=== PATIENT | male | born 1965 | race Caucasian/White ===

== ENCOUNTER 2020-04-22 11:49 | Emergency (ER) | payer BC, OTHER ==
[~2020-04-22] VITALS: Ht 170.2 cm; Wt 74.8 kg
[2020-04-22 11:57] VITALS: BP 134/89
[2020-04-22] MEDS ORDERED: ACYC400T PO (12:08)
[2020-04-22] MEDS ORDERED: PRD20T PO (12:08)
[2020-04-22] MEDS ORDERED: AMOX-358 PO (12:08)
--- NOTE | 2020-04-22 12:09 | ED EENT ---
History of Present Illness General Chief Complaint: Oral/Throat Problems Stated Complaint: DENTAL PAIN/SORES Source: patient Exam Limitations: no limitations History of Present Illness Date Seen by Provider: Apr 22, 2020 Time Seen by Provider: 12:04 Initial Comments To ER with sores on his lips tongue and cheeks. These have been present for about a week. Has also had purulent and bloody nasal secretions for about the same period of time. Timing/Duration: last week Severity: moderate Location: nose, mouth Associated Symptoms: denies symptoms Allergies and Home Medications Allergies Coded Allergies: No Known Drug Allergies (Unverified , 04/22/20) Patient Home Medication List Home Medication List Reviewed: Yes Review of Systems Review of Systems Constitutional: see HPI Eyes: No Symptoms Reported Ears: No Symptoms Reported Nose: see HPI, clots, congestion, epistaxis, bloody discharge, purulent discharge Mouth: see HPI, pain Throat: no symptoms reported Respiratory: no symptoms reported Cardiovascular: no symptoms reported Musculoskeletal: no symptoms reported Skin: no symptoms reported Neurological: No Symptoms Reported Hematologic/Lymphatic: No Symptoms Reported Immunological/Allergic: no symptoms reported Past Bdymzhs-Zdlpax-Vofgyp Hx Patient Social History Alcohol Use: Denies Use Recreational Drug Use: No Smoking Status: Former Smoker Recent Foreign Travel: No Contact w/Someone Who Travel: No Recent Hopitalizations: No Immunizations Up To Date Tetanus Booster (TDap): Unknown Seasonal Allergies Seasonal Allergies: No Past Medical History Surgeries: Yes (dental) Respiratory: No Cardiac: No Neurological: No Genitourinary: No Gastrointestinal: No Musculoskeletal: No Endocrine: No HEENT: No Cancer: No Psychosocial: No Blood Disorders: No Physical Exam Height, Weight, BMI Height: '" Weight: lbs. oz. kg; BMI Method: General Appearance: WD/WN, no apparent distress Eyes: bilateral eye normal inspection, bilateral eye PERRL, bilateral eye EOMI Ears: bilateral ear auricle normal, bilateral ear canal normal, bilateral ear TM normal Nose: other (He does have some shallow ulcerative erosions to the left side of the tongue, the buccal surface of the cheeks, the lip on the bottom.) Mouth/Throat: No tongue swollen; other Neck: non-tender, full range of motion Gastrointestinal: non tender, soft Neurologic/Psychiatric: alert, normal mood/affect, oriented x 3 Skin: normal color, warm/dry Progress/Results/Core Measures Results/Orders My Orders Orders - RADHA MICHELE APRN Lidocaine 2% Viscous 15 Ml (Xylocaine Vi (04/22/20 12:15) Acyclovir Capsule/Tablet (Zovirax Caps (04/22/20 12:15) Prednisone Tablet (Deltasone Tablet) (04/22/20 12:15) Amoxicillin/Clavulanate Tablet (Augmenti (04/22/20 12:15) Departure Impression Primary Impression: Sinusitis Additional Impression: Herpetic gingivostomatitis Disposition: HOME, SELF-CARE Condition: Stable Departure-Patient Inst. Decision time for Depature: 12:07 Referrals: NO,LOCAL PHYSICIAN (PCP/Family) Primary Care Physician Patient Instructions: Mouth Sores, Sinusitis, Adult ED Add. Discharge Instructions: Dip a Q-tip in the lidocaine and swab on the mouth as needed for comfort and certainly before eating. Take the antibiotics and steroids with food as they can upset your stomach. Return to ER for any concerns or worsening. Follow-up with your doctor this week. All discharge instructions reviewed with patient and/or family. Voiced understanding. Scripts Acyclovir (Acyclovir) 400 Mg Tablet 400 MG PO 5XD, #35 TAB Prov: RADHA MICHELE APRN 04/22/20 Amoxicillin/Potassium Clav (Augmentin 875-125 Tablet) 1 Each Tablet 1 EACH PO BID, #14 TAB 0 Refills Prov: RADHA MICHELE APRN 04/22/20 Prednisone (Prednisone) 20 Mg Tab 40 MG PO DAILY, #6 TAB 0 Refills Prov: RADHA MICHELE APRN 04/22/20 RADHA MICHELE APRN Apr 22, 2020 12:09
[2020-04-22] MEDS ORDERED: predniSONE 20 MG TAB PO ONE (12:15)
[2020-04-22] MEDS ORDERED: ACYCLOVIR 400 MG TABLET (ZOVIRAX) PO SCH (12:15)
[2020-04-22] MEDS ORDERED: LIDOCAINE 2% VISCOUS 15 ML UDC PO ONE (12:15)
[2020-04-22] MEDS ORDERED: AUGMENTIN 875 MG TAB (AMOXICILLIN/CLAVULANATE) PO SCH (12:15)
== END 2020-04-22 12:21 | disposition home or self-care (01) ==
LOC: ER 11:54
DX: J32.9 Chronic sinusitis, unspecified (principal); B00.2 Herpesviral gingivostomatitis and pharyngotonsillitis; Z87.891 Personal history of nicotine dependence
CPT/HCPCS: 99283

== ENCOUNTER → 2020-05-01 | Outpatient (CLI) | payer BC ==
[~2020-05-01] MED LIST: ACYC400T PO; AMOX-358 PO; PRD20T PO
== END ==
LOC: LAB 15:51
PROVIDERS: ATTEND Family Medicine
DX: K12.0 Recurrent oral aphthae (principal); J32.8 Other chronic sinusitis
CPT/HCPCS: 36415; 82784; 86038; 86060; 86141; 86695; 86696; 86703

== ENCOUNTER → 2020-05-07 | Outpatient (CLI) | payer BC ==
--- NOTE | 2020-05-07 13:17 | Diagnostic Imaging Report ---
PROCEDURE: CT sinuses without contrast TECHNIQUE: Multiple contiguous axial images were obtained through the sinuses without the use of intravenous contrast. Coronal and sagittal reformations were then performed. Auto Exposure Controls were utilized during the CT exam to meet ALARA standards for radiation dose reduction. INDICATION: Chronic sinusitis. COMPARISON: There are no prior studies available for comparison. FINDINGS: There is mild mucosal thickening of the ethmoid and maxillary sinuses. There is also narrowing of the ostiomeatal complex on the right due to mucosal thickening. The ostiomeatal complex on the left is patent. The sphenoid sinus is generally clear. The frontal sinuses are aplastic. The nasal septum is deviated to the right. The bone windows show no evidence for a fracture or for a destructive lesion. The intracranial contents, where visualized, show no sign of an acute abnormality. There are vague areas of diminished density in the right frontal lobe. I suspect that these are related to encephalomalacia from prior infarct. IMPRESSION: 1. There is mild bilateral ethmoid and maxillary sinusitis. There is also narrowing of the ostiomeatal complex on the right due to mucosal thickening. 2. The sinuses are otherwise generally clear. 3. There is no acute bony abnormality identified. 4. The areas of diminished density in the right frontal lobe are most likely due to encephalomalacia from prior infarcts. If previous exams are available, they would be helpful for comparison. If there are no prior exams and further imaging is desired, then MRI would be recommended. Dictated by: Dictated on workstation # [id number]
== END ==
LOC: RAD 12:40
PROVIDERS: ATTEND Family Medicine
DX: J32.8 Other chronic sinusitis (principal)
CPT/HCPCS: 70486

== ENCOUNTER → 2020-06-26 | Outpatient (CLI) | payer BC ==
[2020-06-26 09:06] LABS: HEMOGLOBIN 15.8 g/dL (13.3-17.7); MEAN PLATELET VOLUME 9.5 fL (9.0-12.2); WHITE BLOOD COUNT 8.5 10^3/uL (4.3-11.0)
[2020-06-26 09:19] LABS: PROTHROMBIN TIME PATIENT 13.3 SEC (12.2-14.7)
== END ==
LOC: LAB 08:57
PROVIDERS: ATTEND Otolaryngology Otolaryngology/Facial Plastic Surgery
DX: R04.0 Epistaxis (principal)
CPT/HCPCS: 36415; 85027; 85610; 85730

== ENCOUNTER → 2020-07-05 | Outpatient (CLI) | payer BC | LOC: LAB 15:04 | PROVIDERS: ATTEND Otolaryngology Otolaryngology/Facial Plastic Surgery | DX: Z01.89 Encounter for other specified special examinations (principal) | CPT/HCPCS: 36415; 85652; 86021; 86235; 86431 ==

== ENCOUNTER → 2020-07-23 | Outpatient (CLI) | payer BC ==
--- NOTE | 2020-07-23 09:26 | Diagnostic Imaging Report ---
PROCEDURE: MR imaging of the brain without contrast. TECHNIQUE: Multiplanar, multisequence MR imaging of the brain was performed without contrast. INDICATION: Right frontal lobe encephalomalacia is partially visualized on previous CT sinuses. There are no foci of abnormal diffusion restriction. No findings of an acute or subacute ischemic infarct found. Some focal encephalomalacia and gliosis in the right frontal lobe consistent with an old ischemic insult. No focal or generalized cerebral edema. No evidence for elevated intracerebral pressures. There is no hemorrhage nor acute extra-axial fluid collection. The midline structures nondisplaced. The ventricular system nondilated and nondisplaced. The basilar cisterns are patent. The brainstem and posterior fossa unremarkable. No cerebellopontine angle mass or mass effect is found. Some likely chronic old ischemic changes in the high posterior right parietal lobe. There is some mild gliosis and encephalomalacia. Orbits and paranasal sinuses nonacute. 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 No findings of recent infarct nor hemorrhage, edema or mass effect. No acute appearing abnormality. Dictated by: Dictated on workstation # [id number]
== END ==
LOC: RAD 08:00
PROVIDERS: ATTEND Family Medicine
DX: G93.89 Other specified disorders of brain (principal)
CPT/HCPCS: 70551

== ENCOUNTER → 2020-08-13 | Outpatient (CLI) | payer BC ==
--- NOTE | 2020-08-13 13:46 | Diagnostic Imaging Report ---
PROCEDURE: US carotid duplex, bilateral. TECHNIQUE: Multiple real-time grayscale images were obtained over the carotid arteries in various projections, bilaterally. Additional spectral analysis and color Doppler duplex images were also obtained. INDICATION: History of right hemispheric stroke. TECHNIQUE: Multiple real-time grayscale images were obtained over the carotid arteries in various projections bilaterally. Additional spectral analysis and color Doppler and Duplex images were also obtained. FINDINGS: Right carotid circulation: There is mild plaque formation in the right carotid bifurcation. There is no significant stenoses of the right internal carotid artery. Left carotid circulation: There is mild plaque formation in the left carotid bifurcation. There is no significant stenoses of the left internal carotid artery. Flow in the bilateral vertebral arteries is antegrade. Bilateral external carotid arteries patent. DOPPLER (peak systolic velocity M/S Right Left CCA .90 .98 ICA Proximal .75 .67 ICA Mid .77 .75 ICA Distal .72 .78 RATIO .87 .80 ECA 1.3 1.3 VERT .69 .46 IMPRESSION: 1. No significant stenosis of the internal carotid arteries. Parameters based on the consensus panel Vásquez-Scale and Doppler ultrasound criteria published February 2003, Radiology, Volume 229. Dictated by: Dictated on workstation # [id number]
== END ==
LOC: CARD 09:43
PROVIDERS: ATTEND Family Medicine
DX: I63.9 Cerebral infarction, unspecified (principal)
CPT/HCPCS: 93306; 93880

== ENCOUNTER 2020-09-22 08:52 | Emergency (ER) | payer BC ==
[~2020-09-22] VITALS: Ht 175 cm; Wt 79.0 kg
[~2020-09-22 08:52] MED LIST changes: -ACYC400T PO; +ACYC400T21 PO
[2020-09-22 08:55] VITALS: BP 129/92
[2020-09-22] MEDS ORDERED: LIDOCAINE 2% VISCOUS 15 ML UDC ONE (09:10)
[2020-09-22] MEDS ORDERED: SUCRALFATE 1 GM (CARAFATE) TAB ONE (09:10)
[2020-09-22] MEDS ORDERED: SUCRALFATE 1 GM (CARAFATE) TAB PO ONE (09:15)
[2020-09-22] MEDS ORDERED: ANTACID SUSP 30 ML UDC (MYLANTA) PO ONE (09:15)
[2020-09-22] MEDS ORDERED: LIDOCAINE 2% VISCOUS 15 ML UDC PO ONE (09:15)
--- NOTE | 2020-09-22 09:19 | ED EENT ---
History of Present Illness General Chief Complaint: Oral/Throat Problems Stated Complaint: MOUTH SORES/SORE THROAT Nursing Triage Note: PT CO OF SORES IN MOUTH, WORSENING. PT MOUTH FULL OF ULCERS, UNABLE TO EAT OR DRINK. HAD GOTTEN BETTER BUT NOW WORSE. PT HAS BEEN SEEING DR WHITE FOR ULCERS Source: patient Exam Limitations: no limitations History of Present Illness Date Seen by Provider: September 22, 2020 Time Seen by Provider: 09:00 Initial Comments Patient is a 55-year-old male who presents to the emergency department today with a chief complaint of multiple shallow ulcers in his mouth worsening over the course of the last couple of days as well as a sore throat since yesterday. Patient states that he has had recurrent ulcers in his mouth since November or December of last year after what he believes was a snake bite to his left calf. Patient did not see a snake bite him it could have been a spider but he did see 2 fang [place] in the posterior aspect of his left calf the day after the injury. Patient has been followed by Dr. Centeno and has had significant amounts of testing done to try and sort out the etiology of his multiple symptoms. Patien states that he was concerned today that he might have strep throat as his throat hurts so bad he is been unable to sleep. Secondary to the ulcers the patient is also been unable to eat or drink. He did use a little bit of Magic mouthwash but it did not help. Patient is on daily acyclovir once a day. No recent fevers, chills, cough or congestion. No nausea vomiting diarrhea or genitourinary complaints. All other review of systems reviewed and negative except as stated above. Timing/Duration: abrupt Severity: severe Location: mouth, throat Associated Symptoms: denies symptoms, sore throat Allergies and Home Medications Allergies Coded Allergies: No Known Drug Allergies (Unverified , 04/22/20) Home Medications Acyclovir 400 Mg Tablet, 400 MG PO 5XD Prescribed by: RADHA MICHELE on 04/22/20 120 Amoxicillin/Potassium Clav 1 Each Tablet, 1 EACH PO BID Prescribed by: RADHA MICHELE on 04/22/20 120 Prednisone 20 Mg Tab, 40 MG PO DAILY Prescribed by: RADHA MICHELE on 04/22/20 120 Patient Home Medication List Home Medication List Reviewed: Yes Review of Systems Review of Systems Constitutional: see HPI Eyes: No Symptoms Reported Ears: No Symptoms Reported Nose: congestion Mouth: other (Multiple shallow ulcers) Throat: pain Respiratory: no symptoms reported Cardiovascular: no symptoms reported Gastrointestinal: no symptoms reported Musculoskeletal: no symptoms reported Skin: other (Change in texture" skin thinness") All Other Systems Reviewed Negative Unless Noted: Yes Past Jdcekqh-Iujuck-Dglrvv Hx Patient Social History Alcohol Use: Denies Use Smoking Status: Never a Smoker Recent Infectious Disease Expo: No Recent Hopitalizations: No Immunizations Up To Date Tetanus Booster (TDap): Unknown Seasonal Allergies Seasonal Allergies: No Past Medical History Surgeries: Yes (dental) Respiratory: No Cardiac: No Neurological: No Genitourinary: No Gastrointestinal: No Musculoskeletal: No Endocrine: No HEENT: No Cancer: No Psychosocial: No Blood Disorders: No Physical Exam Vital Signs Vital Signs - First Documented 09/22/20 08:55 Pulse 67 Resp 20 B/P (MAP) 129/92 (104) Pulse Ox 97 Height, Weight, BMI Height: '" Weight: lbs. oz. kg; 25.00 BMI Method: General Appearance: WD/WN, no apparent distress Eyes: bilateral eye normal inspection, bilateral eye PERRL, bilateral eye EOMI Nose: normal inspection Mouth/Throat: other (Pharyngeal erythema, posterior, right greater than left. Small shallow ulcer noted to the right of center at the tip of the tongue also multiple shallow ulcers noted to the inner aspect of the bottom lip on the right) Neck: non-tender, full range of motion, supple, normal inspection Cardiovascular: regular rate, rhythm Respiratory: lungs clear, normal breath sounds, no respiratory distress, no accessory muscle use Neurologic/Psychiatric: alert, normal mood/affect, oriented x 3 Skin: normal color, warm/dry Progress/Results/Core Measures Results/Orders Lab Results Laboratory Tests Test 09/22/20 09:15 Range/Units Group A Streptococcus Screen NEGATIVE NEGATIVE My Orders Orders - MINERVA MANCINI MD Rapid Strep A Screen (09/22/20 09:13) Antacid Suspension (Mylanta Suspension (09/22/20 09:15) Lidocaine 2% Viscous 15 Ml (Xylocaine Vi (09/22/20 09:15) Sucralfate Tablet (Carafate Tablet) (09/22/20 09:15) Lidocaine 2% Viscous 15 Ml (Xylocaine Vi (09/22/20 09:10) Sucralfate Tablet (Carafate Tablet) (09/22/20 09:10) Medications Given in ED Current Medications Medications Dose Ordered Sig/Shelbie Route Start Time Stop Time Status Last Admin Dose Admin Al Hydrox/Mg Hydrox/Simethicone 30 ml ONCE ONCE PO 09/22/20 09:15 09/22/20 09:16 DC 09/22/20 09:21 30 ML Lidocaine HCl 5 ml ONCE ONCE PO 09/22/20 09:15 09/22/20 09:16 DC 09/22/20 09:21 5 ML Sucralfate 1 gm ONCE ONCE PO 09/22/20 09:15 09/22/20 09:16 DC 09/22/20 09:20 1 GM Vital Signs/I&O 09/22/20 08:55 Pulse 67 Resp 20 B/P (MAP) 129/92 (104) Pulse Ox 97 Blood Pressure Mean: 104 Progress Progress Note : Time: 09:41 Progress Note Patient's rapid strep screen is negative. He obtained minimal relief with the GI cocktail that we administered. The patient is quite frustrated with lack of pain control. I offered a small dose of hydrocodone. At first the patient declined but then decided that he would take it. I recommended that he take tugk-arx-hsnckum ibuprofen 3 to 4 tablets with food 3 times daily. I have recommended that he follow-up closely with Dr. Centeno and with Dr. White. The patient verbalizes understanding. At this point he has no clinical or objective findings to warrant further studies from the emergency department. The patient has had extensive studies done through his primary care physician. They are still investigating the cost of his ulcers. All questions are sought and answered. Patient is stable for discharge. Departure Impression Primary Impression: Stomatitis Additional Impression: Sore throat Disposition: 01 HOME, SELF-CARE Condition: Stable Departure-Patient Inst. Decision time for Depature: 09:42 Referrals: PRIETO CENTENO DO (PCP/Family) Primary Care Physician Patient Instructions: Mouth Sores (DC), Viral Pharyngitis Add. Discharge Instructions: Please call and follow-up with Dr. Centeno first thing on Thursday. Use the Magic mouthwash/cocktail every 3-4 hours to help alleviate your pain. Take [id number]-ncpitrc ibuprofen, 3 to 4 tablets every 8 hours with food as needed for pain. I have given you a prescription for hydrocodone, you can take 1 of these every 4-6 hours also as needed for pain. Return to the emergency room for any worsening symptoms especially associated with fever, shortness of breath or other emergent concerns. Scripts Hydrocodone/Acetaminophen (Hydrocodone-Acetamin 5-325 mg) 1 Each Tablet 1 TAB PO Q4H PRN for PAIN-MODERATE (5-7), #12 TAB Prov: MINERVA MANCINI MD 09/22/20 MINERVA MANCINI MD September 22, 2020 09:18
[2020-09-22] MEDS ORDERED: ACHD5005 PO (09:43)
== END 2020-09-22 09:51 | disposition home or self-care (01) ==
LOC: EDUNIT# 08:52 → ER 08:53
DX: K12.1 Other forms of stomatitis (principal); J02.9 Acute pharyngitis, unspecified
CPT/HCPCS: 87430; 99284

== ENCOUNTER → 2020-09-25 | Outpatient (CLI) | payer BC ==
[~2020-09-25] MED LIST changes: +ACHD5005 PO
--- NOTE | 2020-09-25 14:55 | Diagnostic Imaging Report ---
INDICATION: Right knee pain. COMPARISON: None available. TECHNIQUE: Three radiographs of the right knee dated 09/25/2020. FINDINGS: No acute fracture or dislocation. No destructive osseous process. Mild medial and lateral joint space narrowing. Tiny superior patellar enthesophytes. No significant joint effusion. No suspicious radiopaque foreign body. IMPRESSION: No acute osseous abnormality with low-grade degenerative changes for age. Dictated by: Dictated on workstation # [id number]
== END ==
LOC: RAD 11:05
PROVIDERS: ATTEND Family Medicine
DX: M17.11 Unilateral primary osteoarthritis, right knee (principal)
CPT/HCPCS: 73562

== ENCOUNTER 2021-02-26 12:49 | Emergency (ER) | payer BC ==
[~2021-02-26] VITALS: Ht 167 cm; Wt 77.0 kg
--- OUTSIDE RECORDS SUMMARY | 2021-02-26 12:56 | XMS REPORT | CCD ---
Author Author Saroj Centeno D.O. Organization [facility] Address [address] [place] [address] Phone Care Team Providers Care Developer Prover Upholstering Name Role Phone PP Unavailable CCM Unavailable Summary Purpose Interface Exchange Insurance Providers Payer name Policy type / Coverage type Covered libertarian ID Effective Begin Date Effective End Date Blue Cross Blue Shield Blue Cross/Blue Shield [id number] Unknown Family History Family History data not found Social History Social History Element Codes Description Effective Dates Marital status Unknown 05/01/2020 Employment Unknown Currently employed [employer] 05/01/[address]: 043429259 Has never smoked or chewed tobacco 05/01/[address]: 308988 Currently drinks alcohol 05/01 Has the patient ever used illegal drugs? Unknown In the past only 05/01/2020 Allergies, Adverse Reactions, Alerts Substance Reaction Codes Entered Date Inactivated Date Status * NO KNOWN DRUG ALLERGIES Unknown 05/01/2020 No Inactiv e Date Active Shellfish reaction Unknown 05/01/2020 No Inactive Date Active * NO KNOWN ENVIRONMENTAL ALLERGIES Unknown 05/01/2020 N o Inactive Date Active Problems Condition Codes Effective Dates Condition Status Oral pain ICD-10: K13.79 ICD-9: 528.9 05/01/2020 Active Skin sore ICD-10: L98.9 ICD-9: 709.9 05/01/2020 Active Acute pain of right knee ICD-10: M25.561 ICD-9: 719.46 09/25/2020 Active Sore throat ICD-10: J02.9 ICD-9: 462 09/25/2020 Active Chronic recurrent sinusitis ICD-10: J32.9 ICD-9: 473.9 05/01/2020 Active Foot callus ICD-10: L84 ICD-9: 700 07/16/2020 Active Recurrent aphthous ulcer ICD-10: K12.0 ICD-9: 528.2 05/01/2020 Active Right frontal lobe lesion ICD-10: G93.9 ICD-9: 348.89 05/21/2020 Active Immunosuppressed status ICD-10: D84.9 ICD-9: 279.9 05/01/2020 Active Neuropathy ICD-10: G62.9 ICD-9: 355.9 05/01/2020 Active Medications Medication Codes Instructions Start Date Stop Date Status Fill Instructions acyclovir 800 mg tablet RxNorm: 026554 1 Tablet(s) Oral QD 02/13/2004/12/2021 Active [AttnRPh: Saving apply/adjud icate RxGRP:SG20 RxBIN:[id number] RxPCN: ID#:[id number]] acyclovir 200 mg capsule RxNorm: 933555 1 Capsule(s) Oral two t imes a day 02/12/2021 No Stop Date Active prednisone 20 mg tablet RxNorm: 273037 Take 2 Tablet(s) Oral QD 02/16/2021 Active acyclovir 800 mg tablet RxNorm: 632723 1 Tablet(s) Oral QD 09/26/19 21 11/23/2020 Inactive [AttnRPh: Saving apply/adjud icate RxGRP:SG20 RxBIN:[id number] RxPCN: ID#:[id number]] aspirin 81 mg tablet,delayed release RxNorm: 670725 1 Tablet(s) Oral QD 07/31/2020 02/11/2021 Inactive Valtrex 1 gram tablet RxNorm: 775040 1 Tablet(s) Oral QD replac es acyclovir 07/16/2020 09/14/2020 Inactive acyclovir 800 mg tablet RxNorm: 081970 1 Tablet(s) Oral QD 05/21/1907/15/2020 Inactive [AttnRPh: Saving apply/adjud icate RxGRP:SG20 RxBIN:[id number] RxPCN: ID#:[id number]] Augmentin 875 mg-125 mg tablet RxNorm: 382046 1 Tablet(s) Oral two times a day 05/04/2020 05/18/2020 Inactive Valtrex 1 gram tablet RxNorm: 908701 1 Tablet(s) Oral three jade es a day 05/04/2020 05/18/2020 Inactive Augmentin 875 mg-125 mg tablet RxNorm: 017862 1 Tablet(s) Oral two times a day 05/03/2020 05/03/2020 Inactive Valtrex 1 gram tablet RxNorm: 220521 1 Tablet(s) Oral three jade es a day 05/03/2020 05/03/2020 Inactive ibuprofen 200 mg tablet RxNorm: 097322 as needed 05/01/2020 No Stop Da te Active Medication Administered No Medication Administered data Immunizations No Immunization data Results No Results data Procedures Procedure Codes Date VIRUS INOCULATION TISSUE CPT-4: 35491 02/12/2021 Vital Signs Date Vital 02/12/2021 Blood Pressure 1: 133/78 Code: 8480-6 Heart Rate 1: 91 bpm Respiratory Rate: 16 bpm SpO2: 98% Temperature: 36.5 (C) / 97.7 (F) 09/25/2020 Blood Pressure 1: 134/76 Code: 8480-6 Heart Rate 1: 73 bpm Respiratory Rate: 16 bpm SpO2: 98% Temperature: 36.4 (C) / 97.5 (F) We ight: 170 lbs Code: 88110-3 07/16/2020 Blood Pressure 1: 120/68 Code: 8480-6 Heart Rate 1: 72 bpm Respiratory Rate: 20 bpm SpO2: 96% Temperature: 37.3 (C) / 99.1 (F) We ight: 169 lbs Code: 00525-1 05/21/2020 Blood Pressure 1: 114/68 Code: 8480-6 BMI: 26.6 Code: 01901-2 Heart Rate 1: 72 bpm Height: 5'6" Code: 8302-2 Respiratory Rate: 20 bpm SpO2: 96% Temperature: 36.7 (C) / 98.0 (F) Weight: 165 lbs Code: 67931-1 05/01/2020 Blood Pressure 1: 148/80 Code: 8480-6 BMI: 25.8 Code: 14702-0 Heart Rate 1: 76 bpm Height: 5'6" Code: 8302-2 Respiratory Rate: 20 bpm SpO2: 97% Temperature: 36.6 (C) / 97.8 (F) Weight: 160 lbs Code: 50156-9 Functional Status No Functional Status data Reason For Visit Reason For Visit Effective Dates Notes oral ulcers 02/12/2021 follow up 09/25/2020 Patient was seen at ER last Thursday for sore throat follow up 07/16/2020 Patient states never was given order for MRI brain and hospital never called to schedule from last visit follow up 05/21/2020 Patient just feels l belle he is dehydrated no matter how much oral intake he has ~generic 05/01/2020 New Patient---establ ishing visit Encounters Encounter Performer Location Codes Date (03248) OFFICE/OUTPATIENT VISIT EST Diagnosis: Mouth sores[ICD10: K13.79] Diagnosis: Oral pain[ICD10: K13.79] Diagnosis: Skin sore[ICD10: L98.9] Obdulia Maliha KELLY Dime CPT-4: 61806 02/12/2021 ([id number]) OFFICE/OUTPATIENT VISIT EST Diagnosis: Acute pain of right knee[ICD10: M25.561] Diagnosis: Mouth sores[ICD10: K13.79] Diagnosis: Sore throat[ICD10: J02.9] Obdulia Maliha SHAY Dime CPT-4: 09276 09/25/2020 ([id number]) OFFICE/OUTPATIENT VISIT EST Diagnosis: Chronic recurrent sinusitis[ICD10: J32.9] Diagnosis: Recurrent aphthous ulcer[ICD10: K12.0] Diagnosis: Foot callus[ICD10: L84] Diagnosis: Right frontal lobe lesion[ICD10: G93.9] Prieto REILLY Dime CPT-4: 77264 07/16/2020 ([id number]) OFFICE/OUTPATIENT VISIT EST Diagnosis: Chronic recurrent sinusitis[ICD10: J32.9] Diagnosis: Recurrent aphthous ulcer[ICD10: K12.0] Diagnosis: Right frontal lobe lesion[ICD10: G93.9] Prieto Guardado RONELMONTANA Dime CPT-4: 33355 05/21/2020 ([id number]) OFFICE/OUTPATIENT VISIT NEW Diagnosis: Recurrent aphthous ulcer[ICD10: K12.0] Diagnosis: Immunosuppressed status[ICD10: D84.9] Diagnosis: Neuropathy[ICD10: G62.9] Diagnosis: Mouth sores[ICD10: K13.79] Diagnosis: Skin sore[ICD10: L98.9] Diagnosis: Chronic recurrent sinusitis[ICD10: J32.9] Prieto RUSSOMICHEAL REILLYROBIN PEREZ [facility] CPT-4: 21650 05/01/2020 Plan of Care Planned Activity Notes Codes Status Date Visit Plan: Documentation by Meena maldonado RN, student nurse practitioner. I was present with her for the encounter. I personally verified the history of present illness and performed the physical examination and medical decision making. I have verified all of the medical student s documentation for this encounter. Obdulia Maliha, ALTERATION WORKROOM SUPERVISOR 02/12/2021 Visit NOS Plan: Plan Notes: Documentation by Meena Ross,... 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 2.)Continue acyclovir, refill sent out. 2.)Prednisone 20mg-2 tab daily x5 days for acute exacerbation relief. 3.)Patient is in process of obtaining intermittent FMLA and will return to clinic for further evaluation. 4.)Will f/u after culture results. Informed to call or rtc for worsening symptoms or further concerns. ICD-9 : 528.9 ICD-10 : K13.79 02/12/2021 Appointment: TamekaObdulia parra [facility] [phone] [facility] [facility] 02/12/2021 Patient Education: Patient Medication Summary Completed 02/12/2021 Patient Education: acyclovir- OptimizeRX Coupon [id number] https://www.[facility]/sampleComptTIA/resources/getResource/61/df5ji4qx-0ret-6r34-88 Completed 02/12/2021 Patient Education: prednisone- OptimizeRX Coupon 13540 2550 https://www.[facility]/samplemd/resources/getResource/61/152n29b4-9e64-3450-m7 Completed 02/12/2021 Visit Diagnosis Plan: Acute pain of right knee Discuss ion: x-ray right knee today at [address] ICD-9 : 719.46 ICD-10 : M25.561 09/25/2020 Visit Diagnosis Plan: Mouth sores Discussion: Continue acyclovir. Will send referral to ENT for bx ICD-9 : 528.9 ICD-10 : K13.79 09/25/2020 Visit Diagnosis Plan: Sore throat Discussion: Sore thr oat resolving since ED visit. Throat cultures negative. ICD-9 : 462 ICD-10 : J02.9 09/25/2020 Appointment: Obdulia Jett WPtel: [phone] [facility] ER Follow UP 09/25/2020 Patient Education: Patient Medication Summary Completed 09/25/2020 Patient Education: acyclovir- OptimizeRX Coupon [id number] https://www.[facility]/World BX/resources/getResource/61/c2l030i4-5h0z-43f2-52 Completed 09/25/2020 Visit Diagnosis Plan: Foot callus Discussion: May be p lantar warts vs from metatarsal heads so wear inserts and see podiatry ICD-9 : 700 ICD-10 : L84 07/16/2020 Visit Diagnosis Plan: Recurrent aphthous ulcer Discuss ion: Back to ENT for biopsy Change acyclovir to Valtrex 1000mg daily ICD-9 : 528.2 ICD-10 : K12.0 07/16/2020 Visit Diagnosis Plan: Right frontal lobe lesion Discus judie: Check MRI of brain ICD-9 : 348.89 ICD-10 : G93.9 07/16/2020 Visit Diagnosis Plan: Chronic recurrent sinusitis Disc ussion: Go back to see Dr. White ICD-9 : 473.9 ICD-10 : J32.9 07/16/2020 Appointment: Prieto [facility] [phone] [facility] [facility] 07/16 FOLLOW UP 07/16/2020 Patient Education: Valtrex- OptimizeRX Coupon [id number] https://www.[facility]/World BX/resources/getResource/61/jc198864-z11a-7yt7-gm Completed 07/16/2020 Care Plan: Referral Order SNOMED-CT : 30 9785472 Pending 07/16/2020 Care Plan: MRI BRAIN STEM W/O DYE LOINC : 34283-1 Pending 07/16/2020 Visit Diagnosis Plan: Right frontal lobe lesion Discus judie: Check MRI of brain ICD-9 : 348.89 ICD-10 : G93.9 05/21/2020 Visit Diagnosis Plan: Chronic recurrent sinusitis Disc ussion: Referral to ENT ICD-9 : 473.9 ICD-10 : J32.9 05/21/2020 Visit Diagnosis Plan: Recurrent aphthous ulcer Discuss ion: Zovirax daily Discussed lab ICD-9 : 528.2 ICD-10 : K12.0 05/21/2020 Appointment: Prieto Centeno WPtel: [address] [place] [address] 05/21 FOLLOW UP 05/21/2020 Care Plan: MRI BRAIN STEM W/O DYE LOINC : 24846-9 Pending 05/21/2020 Care Plan: Referral Order SNOMED-CT : 30 0993707 Pending 05/21/2020 Visit Diagnosis Plan: Recurrent aphthous ulcer Discuss ion: Need to check PANCHO, ESR, ASO and check for SCID due to recurrent infections ICD-9 : 528.2 ICD-10 : K12.0 05/01/2020 Visit Diagnosis Plan: Chronic recurrent sinusitis Disc ussion: Check CT of sinuses ICD-9 : 473.9 ICD-10 : J32.9 05/01/2020 Appointment: Prieto Centeno WPtel: [facility] NEW PATIENT 05/01/2020 Referral: Keshav White WPtel: [address] [address] [place] Referral Appointment Requested Referral: Fouzia Cantu WPtel: [address] [address] [place] Referral Appointment Requested Instructions Comment . Documentation by Meena Ross RN, [facility] dent nurse practitioner. I was present with her for the encounter. I personally verified the history of present illness and performed the physical examination and medical decision making. I have verified all of the medical student s documentation for this encounter. Obdulia Jett APRN Medical Equipment No Medical Equipment data Health Concerns Section Health Concerns data not found Goals Section Goals data not found Interventions Section Interventions data not found Health Status Evaluations/Outcomes Section Health Status Evaluations/Outcomes data not found Advance Directives No Advance Directive data
--- OUTSIDE RECORDS SUMMARY | 2021-02-26 12:56 | XMS REPORT | CCD ---
Author Author Saroj Centeno D.O. Organization [facility] Address [address] [place] [address] Phone Care Team Providers Care Plastics Fabrication Supervisor Name Role Phone PP Unavailable CCM Unavailable Summary Purpose Interface Exchange Insurance Providers Payer name Policy type / Coverage type Covered constitution party ID Effective Begin Date Effective End Date Blue Cross Blue Shield Blue Cross/Blue Shield [id number] Unknown Family History Family History data not found Social History Social History Element Codes Description Effective Dates Marital status Unknown 05/01/2020 Employment Unknown Currently employed [employer] 05/01/[address]: 938489580 Has never smoked or chewed tobacco 05/01/[address]: 352698 Currently drinks alcohol 05/01 Has the patient [...] Fill Instructions acyclovir 800 mg tablet RxNorm: 635079 1 Tablet(s) Oral QD 02/13/2004/12/2021 Active [AttnRPh: Saving apply/adjud icate RxGRP:SG20 RxBIN:[id number] RxPCN: ID#:[id number]] acyclovir 200 mg capsule RxNorm: 880965 1 Capsule(s) Oral two t imes a day 02/12/2021 No Stop Date Active prednisone 20 mg tablet RxNorm: 466153 Take 2 Tablet(s) Oral QD 02/16/2021 Active acyclovir 800 mg tablet RxNorm: 398053 1 Tablet(s) Oral QD 09/26/19 21 11/23/2020 Inactive [AttnRPh: Saving apply/adjud icate RxGRP:SG20 RxBIN:[id number] RxPCN: ID#:[id number]] aspirin 81 mg tablet,delayed release RxNorm: 298567 1 Tablet(s) Oral QD 07/31/2020 02/11/2021 Inactive Valtrex 1 gram tablet RxNorm: 785460 1 Tablet(s) Oral QD replac es acyclovir 07/16/2020 09/14/2020 Inactive acyclovir 800 mg tablet RxNorm: 454444 1 Tablet(s) Oral QD 05/21/1907/15/2020 Inactive [AttnRPh: Saving apply/adjud icate RxGRP:SG20 RxBIN:[id number] RxPCN: ID#:[id number]] Augmentin 875 mg-125 mg tablet RxNorm: 103636 1 Tablet(s) Oral two times a day 05/04/2020 05/18/2020 Inactive Valtrex 1 gram tablet RxNorm: 276385 1 Tablet(s) Oral three jade es a day 05/04/2020 05/18/2020 Inactive Augmentin 875 mg-125 mg tablet RxNorm: 187207 1 Tablet(s) Oral two times a day 05/03/2020 05/03/2020 Inactive Valtrex 1 gram tablet RxNorm: 012675 1 Tablet(s) Oral three jade es a day 05/03/2020 05/03/2020 Inactive ibuprofen 200 mg tablet RxNorm: 690586 as needed 05/01/2020 No Stop Da te Active Medication Administered No Medication Administered data Immunizations No Immunization data Results No Results data Procedures Procedure Codes Date VIRUS INOCULATION TISSUE CPT-4: 90974 02/12/2021 Vital Signs Date Vital 02/12/2021 Blood Pressure 1: 133/78 Code: 8480-6 Heart Rate 1: 91 bpm Respiratory Rate: 16 bpm SpO2: 98% Temperature: 36.5 (C) / 97.7 (F) 09/25/2020 Blood Pressure 1: 134/76 Code: 8480-6 Heart Rate 1: 73 bpm Respiratory Rate: 16 bpm SpO2: 98% Temperature: 36.4 (C) / 97.5 (F) We ight: 170 lbs Code: 16264-1 07/16/2020 Blood Pressure 1: 120/68 Code: 8480-6 Heart Rate 1: 72 bpm Respiratory Rate: 20 bpm SpO2: 96% Temperature: 37.3 (C) / 99.1 (F) We ight: 169 lbs Code: 63688-1 05/21/2020 Blood Pressure 1: 114/68 Code: 8480-6 BMI: 26.6 Code: 39630-5 Heart Rate 1: 72 bpm Height: 5'6" Code: 8302-2 Respiratory Rate: 20 bpm SpO2: 96% Temperature: 36.7 (C) / 98.0 (F) Weight: 165 lbs Code: 76801-5 05/01/2020 Blood Pressure 1: 148/80 Code: 8480-6 BMI: 25.8 Code: 75726-0 Heart Rate 1: 76 bpm Height: 5'6" Code: 8302-2 Respiratory Rate: 20 bpm SpO2: 97% Temperature: 36.6 (C) / 97.8 (F) Weight: 160 lbs Code: 48879-5 Functional Status No Functional Status data Reason [...] visit Encounters Encounter Performer Location Codes Date (61517) OFFICE/OUTPATIENT VISIT EST Diagnosis: Mouth sores[ICD10: K13.79] Diagnosis: Oral pain[ICD10: K13.79] Diagnosis: Skin sore[ICD10: L98.9] Obdulia Maliha KELLY [email or web address] CPT-4: 03701 02/12/2021 ([id number]) OFFICE/OUTPATIENT VISIT EST Diagnosis: Acute pain of right knee[ICD10: M25.561] Diagnosis: Mouth sores[ICD10: K13.79] Diagnosis: Sore throat[ICD10: J02.9] Obdulia Maliha SHAY [email or web address] CPT-4: 01042 09/25/2020 ([id number]) OFFICE/OUTPATIENT VISIT EST Diagnosis: Chronic recurrent sinusitis[ICD10: J32.9] Diagnosis: Recurrent aphthous ulcer[ICD10: K12.0] Diagnosis: Foot callus[ICD10: L84] Diagnosis: Right frontal lobe lesion[ICD10: G93.9] Prieto REILLY [email or web address] CPT-4: 97538 07/16/2020 ([id number]) OFFICE/OUTPATIENT VISIT EST Diagnosis: Chronic recurrent sinusitis[ICD10: J32.9] Diagnosis: Recurrent aphthous ulcer[ICD10: K12.0] Diagnosis: Right frontal lobe lesion[ICD10: G93.9] Prieto Guardado RONELMONTANA [email or web address] CPT-4: 99305 05/21/2020 ([id number]) OFFICE/OUTPATIENT VISIT NEW Diagnosis: Recurrent aphthous ulcer[ICD10: K12.0] Diagnosis: Immunosuppressed status[ICD10: D84.9] Diagnosis: Neuropathy[ICD10: G62.9] Diagnosis: Mouth sores[ICD10: K13.79] Diagnosis: Skin sore[ICD10: L98.9] Diagnosis: Chronic recurrent sinusitis[ICD10: J32.9] Prieto RUSSOMICHEAL REILLYROBIN PEREZ [facility] CPT-4: 18317 05/01/2020 Plan of Care Planned Activity Notes Codes Status Date Visit Plan: Documentation by Meena maldonado RN, student nurse practitioner. I was present with her for the encounter. I personally verified the history of present illness and performed the physical examination and medical decision making. I have verified all of the medical student s documentation for this encounter. Obdulia Maliha, ANIMAL ATTENDANT 02/12/2021 Visit NOS Plan: Plan Notes: Documentation [...] 02/12/2021 Appointment: TamekaObdulia parra [facility]Ptel[facility] [phone] [facility] [facility] 02/12/2021 Patient Education: Patient Medication Summary Completed 02/12/2021 Patient Education: acyclovir- OptimizeRX Coupon [id number] https://www.[employer]/sampleShareSDK/resources/getResource/61/gx3ze9yl-1ruv-0n98-02 Completed 02/12/2021 Patient Education: prednisone- OptimizeRX Coupon 57217 2550 https://www.[employer]/samplemd/resources/getResource/61/337k68c5-0c95-9267-b8 Completed 02/12/2021 Visit Diagnosis Plan: Acute pain [...] 09/25/2020 Appointment: Obdulia Jett WPtel: [phone] [facility] ER Follow UP 09/25/2020 Patient Education: Patient Medication Summary Completed 09/25/2020 Patient Education: acyclovir- OptimizeRX Coupon [id number] https://www.[employer]/twenty[employer]media/resources/getResource/61/i7i372p5-0q2h-17p7-06 Completed 09/25/2020 Visit Diagnosis Plan: Foot callus [...] 473.9 ICD-10 : J32.9 07/16/2020 Appointment: Prieto eCnteno WPtel[facility] [address] [facility] [facility] 07/16 FOLLOW UP 07/16/2020 Patient Education: Valtrex- OptimizeRX Coupon [id number] https://www.[employer]/tw[employer]media/resources/getResource/61/lb972193-q37e-7dw4-fn Completed 07/16/2020 Care Plan: Referral Order SNOMED-CT : 30 2214108 Pending 07/16/2020 Care Plan: MRI BRAIN STEM W/O DYE LOINC : 68024-4 Pending 07/16/2020 Visit Diagnosis Plan: Right frontal lobe lesion Discus judie: Check MRI of brain ICD-9 : 348.89 ICD-10 : G93.9 05/21/2020 Visit Diagnosis Plan: Chronic recurrent sinusitis Disc ussion: Referral to ENT ICD-9 : 473.9 ICD-10 : J32.9 05/21/2020 Visit Diagnosis Plan: Recurrent aphthous ulcer Discuss ion: Zovirax daily Discussed lab ICD-9 : 528.2 ICD-10 : K12.0 05/21/2020 Appointment: Prieto Centeno WPtel: [address] [place] [address] 05/21 FOLLOW UP 05/21/2020 Care Plan: MRI BRAIN STEM W/O DYE LOINC : 24134-1 Pending 05/21/2020 Care Plan: Referral Order SNOMED-CT : 30 1680265 Pending 05/21/2020 Visit Diagnosis Plan: Recurrent aphthous ulcer Discuss ion: Need to check PANCHO, ESR, ASO and check for SCID due to recurrent infections ICD-9 : 528.2 ICD-10 : K12.0 05/01/2020 Visit Diagnosis Plan: Chronic recurrent sinusitis Disc ussion: Check CT of sinuses ICD-9 : 473.9 ICD-10 : J32.9 05/01/2020 Appointment: Prieto Centeno WPtel: [facility] [address] NEW PATIENT 05/01/2020 Referral: Keshav White WPtel: [address] [address] [place] Referral Appointment Requested Referral: Fouzia Cantu WPtel: [address] [address] [place] Referral Appointment Requested Instructions Comment . Documentation by Meena Ross RN, [facility] dent nurse practitioner. I was present with [...]
--- OUTSIDE RECORDS SUMMARY | 2021-02-26 12:56 | XMS REPORT | CCD ---
Author Author Saroj Centeno D.O. Organization [facility] Address [address] [place] [address] Phone Care Team Providers Care Studio Data Analyst Name Role Phone PP Unavailable CCM Unavailable Summary Purpose Interface Exchange Insurance Providers Payer name Policy type / Coverage type Covered green party ID Effective Begin Date Effective End Date Blue Cross Blue Shield Blue Cross/Blue Shield [id number] Unknown Family History Family History data not found Social History Social History Element Codes Description Effective Dates Marital status Unknown 05/01/2020 Employment Unknown Currently employed [employer] 05/01/[address]: 955259153 Has never smoked or chewed tobacco 05/01/[address]: 545616 Currently drinks alcohol 05/01 Has the patient [...] pain ICD-10: K13.79 ICD-9: 528.9 05/01/2020 Active Acute pain of right knee [...] Neuropathy ICD-10: G62.9 ICD-9: 355.9 05/01/2020 Active Skin sore ICD-10: L98.9 ICD-9: 709.9 05/01/2020 Active Medications Medication Codes Instructions Start Date Stop Date Status Fill Instructions acyclovir 800 mg tablet RxNorm: 327205 1 Tablet(s) Oral QD 02/13/2004/12/2021 Active [AttnRPh: Saving apply/adjud icate RxGRP:SG20 RxBIN:[id number] RxPCN: ID#:[id number]] acyclovir 200 mg capsule RxNorm: 842828 1 Capsule(s) Oral two t imes a day 02/12/2021 No Stop Date Active prednisone 20 mg tablet RxNorm: 140914 Take 2 Tablet(s) Oral QD 02/16/2021 Active acyclovir 800 mg tablet RxNorm: 212037 1 Tablet(s) Oral QD 09/26/1911/23/2020 Inactive [AttnRPh: Saving apply/adjud icate RxGRP:SG20 RxBIN:[id number] RxPCN: ID#:[id number]] aspirin 81 mg tablet,delayed release RxNorm: 813939 1 Tablet(s) Oral QD 07/31/2020 02/11/2021 Inactive Valtrex 1 gram tablet RxNorm: 377399 1 Tablet(s) Oral QD replac es acyclovir 07/16/2020 09/14/2020 Inactive acyclovir 800 mg tablet RxNorm: 382615 1 Tablet(s) Oral QD 05/21/1907/15/2020 Inactive [AttnRPh: Saving apply/adjud icate RxGRP:SG20 RxBIN:[id number] RxPCN: ID#:[id number]] Augmentin 875 mg-125 mg tablet RxNorm: 099836 1 Tablet(s) Oral two times a day 05/04/2020 05/18/2020 Inactive Valtrex 1 gram tablet RxNorm: 177006 1 Tablet(s) Oral three jade es a day 05/04/2020 05/18/2020 Inactive Augmentin 875 mg-125 mg tablet RxNorm: 997044 1 Tablet(s) Oral two times a day 05/03/2020 05/03/2020 Inactive Valtrex 1 gram tablet RxNorm: 396042 1 Tablet(s) Oral three jade es a day 05/03/2020 05/03/2020 Inactive ibuprofen 200 mg tablet RxNorm: 541792 as needed 05/01/2020 No Stop Da te Active Medication Administered No Medication Administered data Immunizations No Immunization data Results No Results data Procedures No Procedures data Vital Signs Date Vital 09/25/2020 Blood Pressure 1: 134/76 Code: 8480-6 Heart Rate 1: 73 bpm Respiratory Rate: 16 bpm SpO2: 98% Temperature: 36.4 (C) / 97.5 (F) We ight: 170 lbs Code: 87020-0 07/16/2020 Blood Pressure 1: 120/68 Code: 8480-6 Heart Rate 1: 72 bpm Respiratory Rate: 20 bpm SpO2: 96% Temperature: 37.3 (C) / 99.1 (F) We ight: 169 lbs Code: 82374-0 05/21/2020 Blood Pressure 1: 114/68 Code: 8480-6 BMI: 26.6 Code: 43413-8 Heart Rate 1: 72 bpm Height: 5'6" Code: 8302-2 Respiratory Rate: 20 bpm SpO2: 96% Temperature: 36.7 (C) / 98.0 (F) Weight: 165 lbs Code: 97325-4 05/01/2020 Blood Pressure 1: 148/80 Code: 8480-6 BMI: 25.8 Code: 74965-7 Heart Rate 1: 76 bpm Height: 5'6" Code: 8302-2 Respiratory Rate: 20 bpm SpO2: 97% Temperature: 36.6 (C) / 97.8 (F) Weight: 160 lbs Code: 89246-9 Functional Status No Functional Status data Reason For Visit Reason For Visit Effective Dates Notes follow up 09/25/2020 Patient was seen at ER last Thursday for sore throat follow up 07/16/2020 Patient states never was given order for MRI brain and hospital never called to schedule from last visit follow up 05/21/2020 Patient just feels l belle he is dehydrated no matter how much oral intake he has ~generic 05/01/2020 New Patient---lea miranda visit Encounters Encounter Performer Location Codes Date (04963) OFFICE/OUTPATIENT VISIT EST Diagnosis: Acute pain of right knee[ICD10: M25.561] Diagnosis: Mouth sores[ICD10: K13.79] Diagnosis: Sore throat[ICD10: J02.9] Obdulia Jett PRIETO SHAY [employer] CPT-4: 64764 09/25/2020 ([id number]) OFFICE/OUTPATIENT VISIT EST Diagnosis: Chronic recurrent sinusitis[ICD10: J32.9] Diagnosis: Recurrent aphthous ulcer[ICD10: K12.0] Diagnosis: Foot callus[ICD10: L84] Diagnosis: Right frontal lobe lesion[ICD10: G93.9] Prieto CENTENO [employer] CPT-4: 93592 07/16/2020 ([id number]) OFFICE/OUTPATIENT VISIT EST Diagnosis: Chronic recurrent sinusitis[ICD10: J32.9] Diagnosis: Recurrent aphthous ulcer[ICD10: K12.0] Diagnosis: Right frontal lobe lesion[ICD10: G93.9] Prieto CENTENO [employer] CPT-4: 92662 05/21/2020 ([id number]) OFFICE/OUTPATIENT VISIT NEW Diagnosis: Recurrent aphthous ulcer[ICD10: K12.0] Diagnosis: Immunosuppressed status[ICD10: D84.9] Diagnosis: Neuropathy[ICD10: G62.9] Diagnosis: Mouth sores[ICD10: K13.79] Diagnosis: Skin sore[ICD10: L98.9] Diagnosis: Chronic recurrent sinusitis[ICD10: J32.9] Prieto CENTENO [employer] CPT-4: 76375 05/01/2020 Plan of Care Planned Activity Notes Codes Status Date Visit Diagnosis Plan: Acute pain of right [...] : J02.9 09/25/2020 Appointment: [facility]dul[facility] [phone] [facility] [facility] Follow UP 09/25/2020 Patient Education: Patient Medication Summary Completed 09/25/2020 Patient Education: acyclovir- OptimizeRX Coupon [id number] https://www.AW-Energy/AllergEase/resources/getResource/61/n6v540l9-6e6c-57q4-17 Completed 09/25/2020 Visit Diagnosis Plan: Foot callus [...] : J32.9 07/16/2020 [facility] Prieto [facility] [phone] [id number] 07/16 FOLLOW UP 07/16/2020 Patient Education: Valtrex- OptimizeRX Coupon [id number] https://www.AW-Energy/samplemd/resources/getResource/61/qr567883-f25l-3kw0-cv Completed 07/16/2020 Care Plan: Referral Order SNOMED-CT : 30 6437596 Pending 07/16/2020 Care Plan: MRI BRAIN STEM W/O DYE LOINC : 11884-8 Pending 07/16/2020 Visit Diagnosis Plan: Right frontal lobe lesion Discus judie: Check MRI of brain ICD-9 : 348.89 ICD-10 : G93.9 05/21/2020 Visit Diagnosis Plan: Chronic recurrent sinusitis Disc ussion: Referral to ENT ICD-9 : 473.9 ICD-10 : J32.9 05/21/2020 Visit Diagnosis Plan: Recurrent aphthous ulcer Discuss ion: Zovirax daily Discussed lab ICD-9 : 528.2 ICD-10 : K12.0 05/21/2020 Appointment: Prieto Centeno WPtel: [facility] [address] 05/21 FOLLOW UP 05/21/2020 Care Plan: MRI BRAIN STEM W/O DYE LOINC : 59481-7 Pending 05/21/2020 Care Plan: Referral Order SNOMED-CT : 30 0548731 Pending 05/21/2020 Visit Diagnosis Plan: Recurrent aphthous ulcer Discuss ion: Need to check PANCHO, ESR, ASO and check for SCID due to recurrent infections ICD-9 : 528.2 ICD-10 : K12.0 05/01/2020 Visit Diagnosis Plan: Chronic recurrent sinusitis Disc ussion: Check CT of sinuses ICD-9 : 473.9 ICD-10 : J32.9 05/01/2020 Appointment: Prieto Centeno WPtel: [address] [place] [address] NEW PATIENT 05/01/2020 Referral: Keshav White WPtel: [address] [address] [place] Referral Appointment Requested Referral: Fouzia Cantu WPtel: [phone] Referral Appointment Requested Instructions No Instructions Medical Equipment No Medical Equipment data Health Concerns Section Health Concerns data not found Goals Section Goals data not found Interventions Section Interventions data not found Health Status Evaluations/Outcomes Section Health Status Evaluations/Outcomes data not found Advance Directives No Advance Directive data
--- OUTSIDE RECORDS SUMMARY | 2021-02-26 12:56 | XMS REPORT | CCD ---
Author Author Saroj Centeno D.O. Organization [facility] Address [address] [place] [address] Phone Care Team Providers Care Clinical Unit Educator Name Role Phone PP Unavailable CCM Unavailable Summary Purpose Interface Exchange Insurance Providers Payer name Policy type / Coverage type Covered democrat ID Effective Begin Date Effective End Date Blue Cross Blue Shield Blue Cross/Blue Shield [id number] Unknown Family History Family History data not found Social History Social History Element Codes Description Effective Dates Marital status Unknown 05/01/2020 Employment Unknown Currently employed [employer] 05/01/[address]: 681630532 Has never smoked or chewed tobacco 05/01/[address]: 745848 Currently drinks alcohol 05/01 Has the patient [...] Fill Instructions acyclovir 800 mg tablet RxNorm: 055096 1 Tablet(s) Oral QD 02/13/2004/12/2021 Active [AttnRPh: Saving apply/adjud icate RxGRP:SG20 RxBIN:026761 RxPCN: ID#:[id number]] acyclovir 200 mg capsule RxNorm: 119166 1 Capsule(s) Oral two t imes a day 02/12/2021 No Stop Date Active prednisone 20 mg tablet RxNorm: 539858 Take 2 Tablet(s) Oral QD 02/16/2021 Active acyclovir 800 mg tablet RxNorm: 028979 1 Tablet(s) Oral QD 09/26/19 21 11/23/2020 Inactive [AttnRPh: Saving apply/adjud icate RxGRP:SG20 RxBIN:[id number] RxPCN: ID#:[id number]] aspirin 81 mg tablet,delayed release RxNorm: 695703 1 Tablet(s) Oral QD 07/31/2020 02/11/2021 Inactive Valtrex 1 gram tablet RxNorm: 933321 1 Tablet(s) Oral QD replac es acyclovir 07/16/2020 09/14/2020 Inactive acyclovir 800 mg tablet RxNorm: 920363 1 Tablet(s) Oral QD 05/21/1907/15/2020 Inactive [AttnRPh: Saving apply/adjud icate RxGRP:SG20 RxBIN:129767 RxPCN: ID#:[id number]] Augmentin 875 mg-125 mg tablet RxNorm: 290623 1 Tablet(s) Oral two times a day 05/04/2020 05/18/2020 Inactive Valtrex 1 gram tablet RxNorm: 954849 1 Tablet(s) Oral three jade es a day 05/04/2020 05/18/2020 Inactive Augmentin 875 mg-125 mg tablet RxNorm: 850595 1 Tablet(s) Oral two times a day 05/03/2020 05/03/2020 Inactive Valtrex 1 gram tablet RxNorm: 001984 1 Tablet(s) Oral three jade es a day 05/03/2020 05/03/2020 Inactive ibuprofen 200 mg tablet RxNorm: 529887 as needed 05/01/2020 No Stop Da te Active Medication Administered No Medication Administered data Immunizations No Immunization data Results No Results data Procedures Procedure Codes Date VIRUS INOCULATION TISSUE CPT-4: 29102 02/12/2021 Vital Signs Date Vital 02/12/2021 Blood Pressure 1: 133/78 Code: 8480-6 Heart Rate 1: 91 bpm Respiratory Rate: 16 bpm SpO2: 98% Temperature: 36.5 (C) / 97.7 (F) 09/25/2020 Blood Pressure 1: 134/76 Code: 8480-6 Heart Rate 1: 73 bpm Respiratory Rate: 16 bpm SpO2: 98% Temperature: 36.4 (C) / 97.5 (F) We ight: 170 lbs Code: 31217-8 07/16/2020 Blood Pressure 1: 120/68 Code: 8480-6 Heart Rate 1: 72 bpm Respiratory Rate: 20 bpm SpO2: 96% Temperature: 37.3 (C) / 99.1 (F) We ight: 169 lbs Code: 64000-0 05/21/2020 Blood Pressure 1: 114/68 Code: 8480-6 BMI: 26.6 Code: 94142-0 Heart Rate 1: 72 bpm Height: 5'6" Code: 8302-2 Respiratory Rate: 20 bpm SpO2: 96% Temperature: 36.7 (C) / 98.0 (F) Weight: 165 lbs Code: 59010-5 05/01/2020 Blood Pressure 1: 148/80 Code: 8480-6 BMI: 25.8 Code: 98138-1 Heart Rate 1: 76 bpm Height: 5'6" Code: 8302-2 Respiratory Rate: 20 bpm SpO2: 97% Temperature: 36.6 (C) / 97.8 (F) Weight: 160 lbs Code: 22540-8 Functional Status No Functional Status data Reason [...] visit Encounters Encounter Performer Location Codes Date (86521) OFFICE/OUTPATIENT VISIT EST Diagnosis: Mouth sores[ICD10: K13.79] Diagnosis: Oral pain[ICD10: K13.79] Diagnosis: Skin sore[ICD10: L98.9] Obdulia Maliha KELLY [employer] CPT-4: 79691 02/12/2021 ([id number]) OFFICE/OUTPATIENT VISIT EST Diagnosis: Acute pain of right knee[ICD10: M25.561] Diagnosis: Mouth sores[ICD10: K13.79] Diagnosis: Sore throat[ICD10: J02.9] Obdulia Maliha SHAY [employer] CPT-4: 85718 09/25/2020 ([id number]) OFFICE/OUTPATIENT VISIT EST Diagnosis: Chronic recurrent sinusitis[ICD10: J32.9] Diagnosis: Recurrent aphthous ulcer[ICD10: K12.0] Diagnosis: Foot callus[ICD10: L84] Diagnosis: Right frontal lobe lesion[ICD10: G93.9] Prieto REILLY [employer] CPT-4: 22286 07/16/2020 (86373) OFFICE/OUTPATIENT VISIT EST Diagnosis: Chronic recurrent sinusitis[ICD10: J32.9] Diagnosis: Recurrent aphthous ulcer[ICD10: K12.0] Diagnosis: Right frontal lobe lesion[ICD10: G93.9] Prieto Guardado RONELMONTANA [employer] CPT-4: 95059 05/21/2020 ([id number]) OFFICE/OUTPATIENT VISIT NEW Diagnosis: Recurrent aphthous ulcer[ICD10: K12.0] Diagnosis: Immunosuppressed status[ICD10: D84.9] Diagnosis: Neuropathy[ICD10: G62.9] Diagnosis: Mouth sores[ICD10: K13.79] Diagnosis: Skin sore[ICD10: L98.9] Diagnosis: Chronic recurrent sinusitis[ICD10: J32.9] Prieto RUSSOMICHEAL REILLYROBIN PEREZ [facility] CPT-4: 75652 05/01/2020 Plan of Care Planned Activity Notes Codes Status Date Visit Plan: Documentation by Meena maldonado RN, student nurse practitioner. I was present with her for the encounter. I personally verified the history of present illness and performed the physical examination and medical decision making. I have verified all of the medical student s documentation for this encounter. Obdulia Maliha, TECHNICAL ASSISTANCE CONSULTANT 02/12/2021 Visit NOS Plan: Plan Notes: Documentation [...] Completed 02/12/2021 Patient Education: acyclovir- OptimizeRX Coupon [id number] https://www.Adlyfe/sampleThoof/resources/getResource/61/yn1hk7em-1gxh-2m31-83 Completed 02/12/2021 Patient Education: prednisone- OptimizeRX Coupon [id number] https://www.Adlyfe/samplemd/resources/getResource/61/001m66f2-7d16-4506-d9 Completed 02/12/2021 Visit Diagnosis Plan: Acute pain [...] 09/25/2020 Appointment: Obdulia Jett WPtel: [phone] [facility] ER Follow UP 09/25/2020 Patient Education: Patient Medication Summary Completed 09/25/2020 Patient Education: acyclovir- Opt[employer]RX Coupon [id number] https://www.Adlyfe/VideoAvatars/resources/getResource/61/a6x322f2-6w8y-20z0-88 Completed 09/25/2020 Visit Diagnosis Plan: Foot callus [...] : J32.9 07/16/2020 [facility]ointment: Prieto [facility]el[facility] [phone] [facility] [facility] 07/16 FOLLOW UP 07/16/2020 Patient Education: Valtrex- OptimizeRX Coupon [id number] https://www.Adlyfe/VideoAvatars/resources/getResource/61/bx932851-l81n-6se6-hp Completed 07/16/2020 Care Plan: Referral Order SNOMED-CT : 30 2307770 Pending 07/16/2020 Care Plan: MRI BRAIN STEM W/O DYE LOINC : 26933-9 Pending 07/16/2020 Visit Diagnosis Plan: Right frontal lobe lesion Discus judie: Check MRI of brain ICD-9 : 348.89 ICD-10 : G93.9 05/21/2020 Visit Diagnosis Plan: Chronic recurrent sinusitis Disc ussion: Referral to ENT ICD-9 : 473.9 ICD-10 : J32.9 05/21/2020 Visit Diagnosis Plan: Recurrent aphthous ulcer Discuss ion: Zovirax daily Discussed lab ICD-9 : 528.2 ICD-10 : K12.0 05/21/2020 Appointment: Prieto Centeno WPtel: [address] [place] [address] 05/21 FOLLOW UP 05/21/2020 Care Plan: MRI BRAIN STEM W/O DYE LOINC : 86279-3 Pending 05/21/2020 Care Plan: Referral Order SNOMED-CT : 30 5793723 Pending 05/21/2020 Visit Diagnosis Plan: Recurrent aphthous ulcer Discuss ion: Need to check PANCHO, ESR, ASO and check for SCID due to recurrent infections ICD-9 : 528.2 ICD-10 : K12.0 05/01/2020 Visit Diagnosis Plan: Chronic recurrent sinusitis Disc ussion: Check CT of sinuses ICD-9 : 473.9 ICD-10 : J32.9 05/01/2020 Appointment: Prieto Centeno WPtel: [facility] NEW PATIENT 05/01/2020 Referral: Keshav White WPtel: [address] [address] [place] Referral Appointment Requested Referral: Fouzia Cantu WPtel: [address] [address] [place] Referral Appointment Requested Instructions Comment . Documentation by Meena Ross RN, [facility] dent nurse practitioner. I was present with [...]
[2021-02-26] MEDS ORDERED: fentaNYL INJ 100 MCG/2 ML AMP IVP ONE (13:15)
[2021-02-26] MEDS ORDERED: LACTATED RINGERS 1,000 ML IV SCH (13:15)
[2021-02-26] MEDS ORDERED: ONDANSETRON 4 MG/2 ML (SDV) Z0FRAN IVP ONE (13:15)
--- NOTE | 2021-02-26 13:25 | ED GI ---
General Chief Complaint: Abdominal/GI Problems Stated Complaint: DIARRHEA,N/V,ABD PAIN Source of Information: Patient Exam Limitations: No Limitations History of Present Illness Date Seen by Provider: Feb 26, 2021 Time Seen by Provider: 13:23 Initial Comments To ER with diarrhea nausea vomiting left lower quadrant abdominal pain. No f naren no chills no dysuria. Symptoms present for 1 week. No ill contacts. Over the course of the past year he has been having some intermittent oral lesions that are difficult to get rid of unless he takes prednisone. In that case the lesions resolve after 24 to 48 hours. The diarrhea is nonbloody and he has no history of this until 1 week ago. Timing/Duration: 1 Week Severity/Quality: Moderate Location: LLQ Radiation: No Radiation Activities at Onset: None Associated Symptoms: Nausea/Vomiting Allergies and Home Medications Allergies Coded Allergies: No Known Drug Allergies (Unverified , 04/22/20) Patient Home Medication List Home Medication List Reviewed: Yes Acyclovir (Acyclovir) 400 Mg Tablet, 400 MG PO 5XD Prescribed by: RADHA MICHELE on 04/22/20 1208 Amoxicillin/Potassium Clav (Augmentin 875-125 Tablet) 1 Each Tablet, 1 EACH PO BID Prescribed by: RADHA MICHELE on 04/22/20 1208 Hydrocodone/Acetaminophen (Hydrocodone-Acetamin 5-325 mg) 1 Each Tablet, 1 TAB PO Q4H PRN for PAIN-MODERATE (5-7) Prescribed by: MINERVA MANCINI on 09/22/20 0944 Prednisone (Prednisone) 20 Mg Tab, 40 MG PO DAILY Prescribed by: RADHA MICHELE on 04/22/20 1208 Review of Systems Review of Systems Constitutional: see HPI EENTM: No Symptoms Reported Respiratory: No Symptoms Reported Cardiovascular: No Symptoms Reported Gastrointestinal: See HPI, Abdominal Pain, Diarrhea, Nausea Genitourinary: No Symptoms Reported Musculoskeletal: no symptoms reported Skin: no symptoms reported Psychiatric/Neurological: No Symptoms Reported Endocrine: No Symptoms Reported Hematologic/Lymphatic: No Symptoms Reported Past Hdzgdna-Jzmsms-Kytvff Hx Patient Social History Tobacco Use?: No Substance use?: No Alcohol Use?: No Pt feels they are or have been: No Immunizations Up To Date Tetanus Booster (TDap): Unknown Influenza Vaccine Up-to-Date: No; Not Current First/Initial COVID19 Vaccinat: 07/05/20 Second COVID19 Vaccination Severino: 08/02/20 COVID19 Vaccine Professor Of Archaeology: MODERNEdu Seasonal Allergies Seasonal Allergies: No Past Medical History Surgeries: Yes (dental) Respiratory: No Cardiac: No Neurological: No Genitourinary: No Gastrointestinal: No Musculoskeletal: No Endocrine: No HEENT: No Cancer: No Psychosocial: No Blood Disorders: No Physical Exam Vital Signs Vital Signs - First Documented 02/26/21 13:08 Temp 37.0 Pulse 79 Resp 20 B/P (MAP) 137/98 (111) Pulse Ox 98 O2 Delivery Room Air Capillary Refill : Height/Weight/BMI Height: '" Weight: lbs. oz. kg; 25.00 BMI Method: General Appearance: WD/WN, no apparent distress HEENT: PERRL/EOMI, normal ENT inspection Respiratory: no respiratory distress, no accessory muscle use Gastrointestinal: normal bowel sounds, soft, guarding, tenderness, other (localized peritoneal signs left abdomen) Extremities: normal range of motion, non-tender Neurologic/Psychiatric: alert, normal mood/affect, oriented x 3 Skin: normal color, warm/dry Progress/Results/Core Measures Results/Orders Lab Results Laboratory Tests Test 02/26/21 13:22 02/26/21 14:55 02/26/21 15:19 Range/Units White Blood Count 13.3 H 4.3-11.0 10^3/uL Red Blood Count 5.41 4.30-5.52 10^6/uL Hemoglobin 15.4 13.3-17.7 g/dL Hematocrit 46 40-54 % Mean Corpuscular Volume 86 80-99 fL Mean Corpuscular Hemoglobin 29 25-34 pg Mean Corpuscular Hemoglobin Concent 33 32-36 g/dL Red Cell Distribution Width 11.9 10.0-14.5 % Platelet Count 309 130-400 10^3/uL Mean Platelet Volume 9.5 9.0-12.2 fL Immature Granulocyte % (Auto) 1 % Neutrophils (%) (Auto) 82 H 42-75 % Lymphocytes (%) (Auto) 10 L 12-44 % Monocytes (%) (Auto) 6 0-12 % Eosinophils (%) (Auto) 1 0-10 % Basophils (%) (Auto) 1 0-10 % Neutrophils # (Auto) 10.9 H 1.8-7.8 10^3/uL Lymphocytes # (Auto) 1.4 1.0-4.0 10^3/uL Monocytes # (Auto) 0.8 0.0-1.0 10^3/uL Eosinophils # (Auto) 0.1 0.0-0.3 10^3/uL Basophils # (Auto) 0.1 0.0-0.1 10^3/uL Immature Granulocyte # (Auto) 0.1 0.0-0.1 10^3/uL Erythrocyte Sedimentation Rate 21 0-30 MM/HR Sodium Level 138 135-145 MMOL/L Potassium Level 4.0 3.6-5.0 MMOL/L Chloride Level 104 98-107 MMOL/L Carbon Dioxide Level 21 21-32 MMOL/L Anion Gap 13 5-14 MMOL/L Blood Urea Nitrogen 16 7-18 MG/DL Creatinine 1.07 0.60-1.30 MG/DL Estimat Glomerular Filtration Rate 72 BUN/Creatinine Ratio 15 Glucose Level 102 70-105 MG/DL Calcium Level 9.3 8.5-10.1 MG/DL Corrected Calcium 9.1 8.5-10.1 MG/DL Total Bilirubin 0.7 0.1-1.0 MG/DL Aspartate Amino Transf (AST/SGOT) 27 5-34 U/L Alanine Aminotransferase (ALT/SGPT) 68 H 0-55 U/L Alkaline Phosphatase 133 40-136 U/L C-Reactive Protein High Sensitivity 2.23 H 0.00-0.50 MG/DL Total Protein 7.2 6.4-8.2 GM/DL Albumin 4.2 3.2-4.5 GM/DL SARS-CoV-2 RNA (RT-PCR) Not Detected Not Detecte Prothrombin Time 13.8 12.2-14.7 SEC INR Comment 1.0 0.8-1.4 Activated Partial Thromboplast Time > 200 *H 24-35 SEC D-Dimer 1.50 H 0.00-0.49 UG/ML My Orders Orders - RADHA MICHELE GENETICS PHYSICIAN Cbc With Automated Diff (02/26/21 13:13) Comprehensive Metabolic Panel (02/26/21 13:13) Ed Iv/Invasive Line Start (02/26/21 13:13) Erythrocyte Sedimentation Rate (02/26/21 13:13) Hs C Reactive Protein (02/26/21 13:13) Ct Abdomen/Pelvis W (02/26/21 13:13) Lactated Ringers (Lr 1000 Ml Iv Solution (02/26/21 13:15) Ondansetron Injection (Zofran Injectio (02/26/21 13:15) Fentanyl Inj (Sublimaze Injection) (02/26/21 13:15) Iohexol Injection (Omnipaque 350 Mg/Ml 1 (02/26/21 14:00) Received Contrast (Hold Metformin- Contr (02/26/21 14:00) Ns (Ivpb) (Sodium Chloride 0.9% Ivpb Bag (02/26/21 14:00) Sodium Chloride Flush (Catheter Flush Sy (02/26/21 14:00) Ekg Tracing (02/26/21 14:42) Fibrin Degradation Products (02/26/21 14:42) Protime With Inr (02/26/21 14:42) Heparin Drip 76445 Unit/500ml (Heparin (02/26/21 14:45) Heparin (Bolus Per Protocol) (Heparin (B (02/26/21 14:45) Partial Thromboplastin Time (02/26/21 14:42) Cbc No Diff (02/26/21 14:42) Cbc No Diff (03/01/21 05:00) Cbc No Diff (03/04/21 05:00) Platelet Count (02/27/21 05:00) Platelet Count (02/28/21 05:00) Platelet Count (03/01/21 05:00) Platelet Count (03/02/21 05:00) Platelet Count (03/03/21 05:00) Platelet Count (03/04/21 05:00) Platelet Count (03/05/21 05:00) Platelet Count (03/06/21 05:00) Platelet Count (03/07/21 05:00) Platelet Count (03/08/21 05:00) Partial Thromboplastin Time (02/26/21 18:42) Protime With Inr (03/01/21 05:00) Protime With Inr (03/02/21 05:00) Protime With Inr (03/03/21 05:00) Protime With Inr (03/04/21 05:00) Protime With Inr (03/05/21 05:00) Protime With Inr (03/06/21 05:00) Protime With Inr (03/07/21 05:00) Protime With Inr (03/08/21 05:00) Protime With Inr (03/09/21 05:00) Protime With Inr (03/10/21 05:00) Initiate Heparin Full Protocol (02/26/21 14:42) Covid 19 Inhouse Test (02/26/21 14:42) Echo W Doppler/Color Flow (02/26/21 14:44) Hydromorphone Injection (Dilaudid Inject (02/26/21 15:00) Medications Given in ED Current Medications Medications Dose Ordered Sig/Shelbie Route Start Time Stop Time Status Last Admin Dose Admin Fentanyl Citrate 50 mcg ONCE ONCE IVP 02/26/21 13:15 02/26/21 13:22 DC 02/26/21 13:29 50 MCG Hydromorphone HCl 0.5 mg ONCE ONCE IV 02/26/21 15:00 02/26/21 15:01 DC 02/26/21 15:30 0.5 MG Ondansetron HCl 8 mg ONCE ONCE IVP 02/26/21 13:15 02/26/21 13:22 DC 02/26/21 13:28 8 MG Sodium Chloride 10 ml NEEDED PRN IV 02/26/21 14:00 02/26/21 14:17 10 ML Sodium Chloride 100 ml ONCE ONCE IV 02/26/21 14:00 02/26/21 14:07 DC 02/26/21 14:17 80 ML Vital Signs/I&O 02/26/21 13:08 Temp 37.0 Pulse 79 Resp 20 B/P (MAP) 137/98 (111) Pulse Ox 98 O2 Delivery Room Air Departure Communication (Admissions) Family Conversation 6823-EKG shows sinus rhythm. He has no known atrial fibrillation. The technical programs manager just finished with the echocardiogram. He is on full heparin protocol. I will waiting a phone call back from the [facility] to see if the superior mesenteric artery can undergo thrombectomy vs catheter directed TPA vs heparinizing. His abdominal pain persists, 0.5mg dilaudid given for pain control as fentanyl did not improve symptoms. [id number]-Dr. Alejandra Casas has accepted the patient from the [facility] Preliminary report from technical programs manager is no obvious thrombus or valvular vegetation. Pain is much improved at this time. His APTT is significantly prolonged per baseline. This was drawn prior to administration of any heparin according to RN. Would raise the possibility of an antiphospholipid syndrome. NAME: KATERINA PERLA [employer] REC#: [id number] PT STATUS: REG ER : 1965 PHYSICIAN: RADHA MICHELE GENETICS PHYSICIAN ADMIT DATE: 02/26/21/ER Draft Date of Exam:02/26/21 CT ABDOMEN/PELVIS W PROCEDURE: CT abdomen and pelvis with contrast. TECHNIQUE: Multiple contiguous axial images were obtained through the abdomen and pelvis after administration of intravenous contrast. Auto Exposure Controls were utilized during the CT exam to meet ALARA standards for radiation dose reduction. All CT scans use one or more of the following dose optimizing techniques: automated exposure control, MA and/or KvP adjustment based on patient size and exam type or iterative reconstruction. INDICATION: Nausea, vomiting and diarrhea. COMPARISON: None FINDINGS: Included portions of the lung bases are clear. CT ABDOMEN: There is moderate sized area of hypoattenuation involving the inferior pole of the left kidney. Smaller similar-appearing areas of diminished attenuation are also seen scattered throughout the right renal parenchyma. Findings are suggestive of renal infarcts, potentially from embolic disease. Sequela of pyelonephritis is felt to be much less likely. There is also strong suspicion of partially occlusive intraluminal filling defect within the distal superior mesenteric artery (image 39, series 2). Small bowel loops are nondistended. Normal appendix is identified. There is scattered colonic diverticulosis, but no CT evidence acute diverticulitis. The adrenal glands, spleen, pancreas, and liver have a normal CT appearance. There is no loculated fluid collection, free fluid or free air within the abdomen. No abnormal mesenteric or retroperitoneal adenopathy is identified. Osseous structures show no acute abnormalities. CT PELVIS: Urinary bladder is grossly unremarkable. There is no loculated fluid collection, free fluid, nor free air within the pelvis. No abnormal lymph nodes are identified. Osseous structures show no acute abnormalities. IMPRESSION: 1. Partially occlusive thrombus within a distal branch of the superior mesenteric artery. Additionally, there are areas of diminished attenuation involving both kidneys, left greater than right, also consistent with infarcts. Sequela of findings are strongly suspicious for embolic disease. Correlation with echocardiogram is recommended. 2. Colonic diverticulosis, but no CT evidence acute diverticulitis. 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 Interventional radiology not available here. Departure-Patient Inst. Referrals: PRIETO AGGARWAL DO (PCP/Family) Primary Care Physician Copy Copies To 1: PRIETO AGGARWAL PETER J GENETICS PHYSICIAN Feb 26, 2021 13:25
[2021-02-26 13:28] LABS: BASOPHILS # (AUTO) 0.1 10^3/uL (0.0-0.1); BASOPHILS % (AUTO) 1 % (0-10); EOSINOPHILS # (AUTO) 0.1 10^3/uL (0.0-0.3); EOSINOPHILS % (AUTO) 1 % (0-10); HEMATOCRIT 46 % (40-54); HEMOGLOBIN 15.4 g/dL (13.3-17.7); LYMPHOCYTES # (AUTO) 1.4 10^3/uL (1.0-4.0); LYMPHOCYTES % (AUTO) 10 % (12-44); MEAN CORPUSCULAR HEMOGLOBIN 29 pg (25-34); MEAN CORPUSCULAR HGB CONC 33 g/dL (32-36); MEAN CORPUSCULAR VOLUME 86 fL (80-99); MEAN PLATELET VOLUME 9.5 fL (9.0-12.2); MONOCYTES # (AUTO) 0.8 10^3/uL (0.0-1.0); MONOCYTES % (AUTO) 6 % (0-12); NEUTROPHILS # (AUTO) 10.9 10^3/uL (1.8-7.8); NEUTROPHILS % (AUTO) 82 % (42-75); PLATELET COUNT 309 10^3/uL (130-400); WHITE BLOOD COUNT 13.3 10^3/uL (4.3-11.0)
[2021-02-26 13:42] LABS: ALBUMIN 4.2 GM/DL (3.2-4.5); BILIRUBIN,TOTAL 0.7 MG/DL (0.1-1.0); CALCIUM 9.3 MG/DL (8.5-10.1); CREATININE SERUM 1.07 MG/DL (0.60-1.30); TOTAL PROTEIN 7.2 GM/DL (6.4-8.2)
[2021-02-26] MEDS ORDERED: CATHETER FLUSH 10 ML SYR IV PRN (14:00)
[2021-02-26] MEDS ORDERED: IOHEXOL 350 MG/ML 100 ML (OMNIPAQUE 350) VIAL IV ONE (14:00)
[2021-02-26] MEDS ORDERED: NS 100 ML (IVPB) BAG IV ONE (14:00)
[2021-02-26] MEDS ORDERED: HOLD METFORMIN - RECEIVED CONTRAST 20 ML VIAL IV SCH (14:00)
[2021-02-26 14:07] LABS: ERYTHROCYTE SEDIMENTATION RATE 21 MM/HR (0-30)
[2021-02-26] MEDS ORDERED: HEParin 1000 UNIT/ML (10ML VIAL) FOR BOLUS IV SCH (14:45)
[2021-02-26] MEDS ORDERED: HEParin DRIP 25000 UNIT/500ML 500 ML IV SCH (14:45)
--- NOTE | 2021-02-26 14:46 | Diagnostic Imaging Report ---
PROCEDURE: CT abdomen and pelvis with contrast. TECHNIQUE: Multiple contiguous axial images were obtained through the abdomen and pelvis after administration of intravenous contrast. Auto Exposure Controls were utilized during the CT exam to meet ALARA standards for radiation dose reduction. All CT scans use one or more of the following dose optimizing techniques: automated exposure control, MA and/or KvP adjustment based on patient size and exam type or iterative reconstruction. INDICATION: Nausea, vomiting and diarrhea. COMPARISON: None FINDINGS: Included portions of the lung bases are clear. CT ABDOMEN: There is moderate sized area of hypoattenuation involving the inferior pole of the left kidney. Smaller similar-appearing areas of diminished attenuation are also seen scattered throughout the right renal parenchyma. Findings are suggestive of renal infarcts, potentially from embolic disease. Sequela of pyelonephritis is felt to be much less likely. There is also strong suspicion of partially occlusive intraluminal filling defect within the distal superior mesenteric artery (image 39, series 2). Small bowel loops are nondistended. Normal appendix is identified. There is scattered colonic diverticulosis, but no CT evidence acute diverticulitis. The adrenal glands, spleen, pancreas, and liver have a normal CT appearance. There is no loculated fluid collection, free fluid or free air within the abdomen. No abnormal mesenteric or retroperitoneal adenopathy is identified. Osseous structures show no acute abnormalities. CT PELVIS: Urinary bladder is grossly unremarkable. There is no loculated fluid collection, free fluid, nor free air within the pelvis. No abnormal lymph nodes are identified. Osseous structures show no acute abnormalities. IMPRESSION: 1. Partially occlusive thrombus within a distal branch of the superior mesenteric artery. Additionally, there are areas of diminished attenuation involving both kidneys, left greater than right, also consistent with infarcts. Sequela of findings are strongly suspicious for embolic disease. Correlation with echocardiogram is recommended. 2. Colonic diverticulosis, but no CT evidence acute diverticulitis. Dictated by: Dictated on workstation # [id number]
[2021-02-26] MEDS ORDERED: HYDROmorphone 2 MG/ML VIAL (DILAUDID) IV ONE (15:00)
[2021-02-26 15:51] LABS: PROTHROMBIN TIME PATIENT 13.8 SEC (12.2-14.7)
[2021-02-26 15:52] LABS: PARTIAL THROMBOPLASTIN TIME > 200 SEC (24-35)
[2021-02-26] MEDS ORDERED: HYDROmorphone 2 MG/ML VIAL (DILAUDID) IVP ONE (20:30)
[2021-02-26 21:00] VITALS: BP 139/89
== END 2021-02-26 21:00 | disposition short-term general hospital (02) ==
LOC: EDUNIT# 12:49 → ER 12:52
DX: K55.069 Acute infarction of intestine, part and extent unspecified (principal); N28.0 Ischemia and infarction of kidney; Z20.822 Contact with and (suspected) exposure to COVID-19; Z79.52 Long term (current) use of systemic steroids
CPT/HCPCS: 36415; 74177; 80053; 85025; 85027; 85379; 85610; 85652; 85730; 86141; 87636; 93005; 93306

== ENCOUNTER → 2021-04-10 | Outpatient (CLI) | payer BC ==
[2021-04-10 09:44] LABS: BASOPHILS # (AUTO) 0.1 10^3/uL (0.0-0.1); BASOPHILS % (AUTO) 0 % (0-10); EOSINOPHILS # (AUTO) 0.1 10^3/uL (0.0-0.3); EOSINOPHILS % (AUTO) 0 % (0-10); HEMATOCRIT 43 % (40-54); HEMOGLOBIN 13.9 g/dL (13.3-17.7); LYMPHOCYTES # (AUTO) 3.1 10^3/uL (1.0-4.0); LYMPHOCYTES % (AUTO) 18 % (12-44); MEAN CORPUSCULAR HEMOGLOBIN 28 pg (25-34); MEAN CORPUSCULAR HGB CONC 32 g/dL (32-36); MEAN CORPUSCULAR VOLUME 87 fL (80-99); MEAN PLATELET VOLUME 9.3 fL (9.0-12.2); MONOCYTES % (AUTO) 6 % (0-12); NEUTROPHILS # (AUTO) 12.5 10^3/uL (1.8-7.8); NEUTROPHILS % (AUTO) 73 % (42-75); PLATELET COUNT 319 10^3/uL (130-400); WHITE BLOOD COUNT 17.3 10^3/uL (4.3-11.0)
[2021-04-10 09:47] LABS: BILIRUBIN,URINE NEGATIVE (NEGATIVE); CLARITY,URINE CLEAR; COLOR,URINE YELLOW; GLUCOSE, URINE (UA) NEGATIVE (NEGATIVE); KETONES,URINE NEGATIVE (NEGATIVE); LEUKOCYTE ESTERASE ,URINE NEGATIVE (NEGATIVE); NITRITE,URINE NEGATIVE (NEGATIVE); PH,URINE 6.5 (5-9); PROTEIN,URINE NEGATIVE (NEGATIVE)
[2021-04-10 09:56] LABS: BACTERIA,URINE NEGATIVE /HPF
[2021-04-10 10:00] LABS: ALBUMIN 3.8 GM/DL (3.2-4.5); BILIRUBIN,TOTAL 0.4 MG/DL (0.1-1.0); CALCIUM 9.1 MG/DL (8.5-10.1); CREATININE SERUM 1.16 MG/DL (0.60-1.30); POTASSIUM 3.8 MMOL/L (3.6-5.0); TOTAL PROTEIN 5.9 GM/DL (6.4-8.2)
[2021-04-10 10:08] LABS: BAND NEUTROPHILS 1 %; BASOPHILS % (MANUAL) 0 %; EOSINOPHILS % (MANUAL) 0 %; ERYTHROCYTE SEDIMENTATION RATE 6 MM/HR (0-30); LYMPHOCYTES % (MANUAL) 22 %; MONOCYTES % (MANUAL) 4 %; NEUTROPHILS % (MANUAL) 73 %
[2021-04-10 10:09] LABS: RBC MORPH NORMAL
== END ==
LOC: LAB 09:14
PROVIDERS: ATTEND Internal Medicine Rheumatology
DX: I77.6 Arteritis, unspecified (principal)
CPT/HCPCS: 36415; 80053; 81000; 82306; 82570; 84156; 85007; 85027; 85652; 86141

== ENCOUNTER → 2021-05-14 | Outpatient (CLI) | payer BC ==
--- NOTE | 2021-05-14 08:54 | Diagnostic Imaging Report ---
INDICATION: Vasculitis and use of medication promoting bone loss. COMPARISON: None FINDINGS: AP Spine L1-L4: [BMD (g/cm2): 1.114] [T-Score: -1.1] [Z-Score: -0.7] [BMD Previous: NA] [BMD % Change: NA] LT Hip Neck: [BMD (g/cm2): 0.964] [T-Score: -0.8] [Z-Score: 0.0] LT Hip Total: [BMD (g/cm2):0.940] [T-Score:-1.1] [Z-Score: -0.6] [BMD Previous: NA] [BMD % Change: NA] RT Hip Neck: [BMD (g/cm2):0.811] [T-Score:-2.0] [Z-Score:-1.1] RT Hip Total: [BMD (g/cm2):0.766] [T-score:-2.3] [Z-Score:-1.8] [BMD Previous:NA] [BMD % Change:NA] *Indicates significant change from prior examination based on 95% confidence level. World Health Organization criteria for BMD interpretation classify patients as Normal (T-score at or above -1.0), Osteopenic (T-score between -1.0 and -2.5) or Osteoporotic (T-score at or below -2.5). LIMITATIONS AND MODIFICATION: None. FRACTURE RISK (FRAX SCORE): The ten year probability of (%): Major Osteoporotic Fracture: [NA] Hip Fracture: [NA] IMPRESSION: 1. Osteopenia (Low bone mass). This is most pronounced in the right hip. 2. Baseline examination. 3. See below National Osteoporosis Foundation guidelines on when to potentially initiate pharmacologic therapy. Based on the National Osteoporosis Foundation Guidelines, pharmacologic treatment should be initiated in any of the following, unless clinical conditions suggest otherwise: * Any patient with prior fragility fracture of the hip or vertebrae. A spine fracture indicates 5X risk for subsequent spine fracture and 2X risk for subsequent hip fracture. * Osteoporosis (T-score <-2.5). * Postmenopausal women and men age 50 and older with low bone mass/osteopenia (T-score between -1.0 and -2.5) by DXA and 10-year major osteoporotic fracture greater than 20% or a 10-year probability of hip fracture greater than 3%. These fracture risks are supplied above in the FRAX score, if applicable. * Clinician judgement and/or patient preferences may indicate treatment for people with 10-year fracture probabilities above or below these levels. Dictated by: Dictated on workstation # [id number]
== END ==
LOC: RAD 08:05
PROVIDERS: ATTEND Internal Medicine Rheumatology
DX: M85.88 Other specified disorders of bone density and structure, other site (principal); I77.6 Arteritis, unspecified
CPT/HCPCS: 77080